=== PATIENT | female | born 1965 | race Two or more races ===

== ENCOUNTER 2023-03-28 11:47 | Emergency (ER) | payer MEDICAID, OTHER ==
[~2023-03-28] VITALS: Ht 167.6 cm; Wt 60.5 kg
[2023-03-28 12:40] VITALS: BP 135/77; PULSE 82; RESP 18; TEMP 97.8; O2SAT 99
[2023-03-28] MEDS ORDERED: HYDROcodone-ACET 5/325MG TAB PO ONE (14:30)
[2023-03-28] MEDS ORDERED: IBUP-1456 PO (15:29)
== END 2023-03-28 15:50 | disposition home or self-care (01) ==
LOC: ER 11:47
DX: S42.212A Unspecified displaced fracture of surgical neck of left humerus, initial encounter for closed fracture (principal); Z79.1 Long term (current) use of non-steroidal anti-inflammatories (NSAID); W01.0XXA Fall on same level from slipping, tripping and stumbling without subsequent striking against object, initial encounter; Y93.89 Activity, other specified; Y92.89 Other specified places as the place of occurrence of the external cause; Y99.8 Other external cause status
CPT/HCPCS: 73030; 73070; 73080